=== PATIENT | male | born 1980 | race Caucasian/White ===

== ENCOUNTER 2017-12-06 11:01 | Outpatient (CLI) | payer MEDICARE ==
--- NOTE | 2017-12-06 12:40 | RAD ---
LEFT FOOT THREE VIEWS: History: Left foot pain due to stumble yesterday. FINDINGS: There is a tiny bony density medial to the head of the first metatarsal which may represent an avulsi on fracture. Clinical correlation is recommended. POS: [email or web address]
== END 2017-12-06 11:02 | disposition home or self-care (01) ==
LOC: MADRAD 11:01
PROVIDERS: ATTEND Family Medicine
DX: M79.672 Pain in left foot (principal)

== ENCOUNTER 2020-04-18 17:04 | Emergency (ER) | payer MEDICARE ==
[2020-04-18] MEDS ORDERED: Ibuprofen 600 MG TAB ONE (17:43)
--- NOTE | 2020-04-18 18:02 | RAD ---
TWO VIEWS OF THE RIGHT HAND: 04/18/20 HISTORY: Trauma to the right hand with pain. FINDINGS: Three views of the right hand shows a questionable lucency through the proximal phalanx of the small finger. This could represent a fracture. Overlying soft tissue swelling is seen. No other areas of fr acture or dislocation are seen. IMPRESSION: Possible proximal phalanx fracture of the small finger. POS: [id number]
== END 2020-04-18 18:30 | disposition home or self-care (01) ==
LOC: MADERS 17:04
DX: S62.617A Displaced fracture of proximal phalanx of left little finger, initial encounter for closed fracture (principal); G35 Multiple sclerosis; F17.210 Nicotine dependence, cigarettes, uncomplicated; W23.0XXA Caught, crushed, jammed, or pinched between moving objects, initial encounter